=== PATIENT | female | born 1985 | race Caucasian/White ===

== ENCOUNTER → 2019-05-12 12:10 | Outpatient (CLI) | payer OTHER, SELFPAY ==
--- NOTE | 2019-05-12 | DI.US.S_ITS ---
PROCEDURE: US OB <= 14 WEEKS FETUS INDICATIONS: INITIAL SIZING AND DATING OUTSIDE/PRIOR DATING DATA: Last menstrual period (LMP): 529.. LMP-based estimated date of delivery (LEAH): 320. First dating scan (date and location): 05.12.19. Estimated date of delivery (LEAH) from first dating scan: 320. TECHNIQUE: Real-time scanning was performed of the fetus and maternal pelvic organs, with image documentation. Endovaginal scanning was also performed to better visualize the fetus and maternal ovaries. COMPARISON: None. FINDINGS: Embryo: An intrauterine gestational sac is present, containing a pole measuring 3.3 mm, corresponding to a 6 week 0 day gestation. heart rate is 115 beats per minute. Measurement variability in dating: +/- 4 weeks by LMP, +/- 7 days by mean sac diameter (use before 6 weeks gestation if crown-rump length not able to be measured), +/- 5 days by crown-rump length (up to 8 weeks 6 days gestation), +/- 7 days by crown-rump length (up to 13 weeks 6 days gestation). Maternal organs: Ovaries not seen. Limited images through the kidneys demonstrate no hydronephrosis. IMPRESSION: 1. Single living intrauterine gestation. Dictated by: Adriana Ferrari M.D. on 05/12/2019 at 16:45 Approved by: Adriana Ferrari M.D. on 05/12/2019 at 16:47
== END ==
PROVIDERS: PCP Nurse Practitioner Family; Visit Provider Student in an Organized Health Care Education/Training Program
DX: Z34.91 Encounter for supervision of normal pregnancy, unspecified, first trimester (principal); Z3A.01 Less than 8 weeks gestation of pregnancy
CPT/HCPCS: 76801

== ENCOUNTER → 2019-08-19 09:43 | Outpatient (CLI) | payer OTHER, SELFPAY ==
--- NOTE | 2019-08-19 | DI.US.S_ITS ---
PROCEDURE: US OB >= 14 WEEKS FETUS INDICATIONS: ANATOMY OUTSIDE/PRIOR DATING DATA: Last menstrual period (LMP): 03/25/19. LMP-based estimated date of delivery (LEAH): 12/30/19. First dating scan (date and location): 05/12/19. Estimated date of delivery (LEAH) from first dating scan: 01/05/20. TECHNIQUE: Real-time scanning was performed of the fetus, with image documentation and biometric measurements. Endovaginal scanning: Not performed. COMPARISON: None. FINDINGS: General: A single living intrauterine gestation is present. Presentation: Vertex. Placenta: Placental position is posterior fundal, without previa. Amniotic fluid index: 14.5 cm, normal range is 5-24 cm. heart rate: 139 beats per minute. Maternal cervical canal: 3.2 cm long. Normal lower limit is 2.5 cm. biometrics: Biparietal diameter: 4.8 cm, correlating with 20 weeks and 3 days Head circumference: 17.8 cm, correlating with 20 weeks and 3 days Abdominal circumference: 15.0 cm, correlating with 20 weeks and 2 days Femur length: 3.2 cm, correlate with 20 weeks and 1 day. Estimated gestational age from initial scan: 20 weeks and 1 day. Composite gestational age from present scan: 20 weeks and 3 days Estimated weight and percentile: 339 g, this correlates with the 49th percentile based on gestational age. Measurement variability for biometric dating: +/- 7 days from 14 weeks to 15 weeks 6 days gestation, +/- 10 days from 16 weeks to 21 weeks 6 days gestation, +/- 2 weeks from 22 weeks to 27 weeks 6 days gestation, +/- 3 weeks for 28 weeks gestation or later. weight reference: 4500 g or EFW >90/95% is considered macrosomia or large for gestational age. EFW <10% is small for gestational age. EFW 5% or less is considered intra-uterine growth restriction. Anatomic survey: Neuro: Ventricles are non-dilated at less than 10 mm. Cisterna magna is normal at 3-11 mm. Cerebellum is normal in size and morphology. Nuchal skin fold: Normal at less than 6 mm between 14-21 weeks gestational age. Face: Nose and lips, facial profile are normal. Spine: No evidence for spina bifida. Heart: 4-chambered heart is present, with normal ventricular outflow tracts. Diaphragm: Diaphragm is intact. Stomach: Left-sided stomach is present. Kidneys: No hydronephrosis. Normal is less than 5 mm in 2nd trimester, less than 7 mm in 3rd trimester. Cord: 3-vessel cord has orthotopic insertion. Bladder: Normal in size. Extremities: All 4 extremities identified. IMPRESSION: Single living intrauterine gestation with an estimated sonographic gestational age of approximately 20 weeks and 3 days. Expected interval growth has occurred. Normal anatomic screening survey. Dictated by: Abdulaziz Saenz M.D. on 08/19/2019 at 11:54 Approved by: Abdulaziz Saenz M.D. on 08/19/2019 at 11:59
== END ==
PROVIDERS: PCP Nurse Practitioner Family; Visit Provider Student in an Organized Health Care Education/Training Program
DX: Z36.89 Encounter for other specified antenatal screening (principal); Z3A.20 20 weeks gestation of pregnancy
CPT/HCPCS: 76811

== ENCOUNTER → 2019-12-09 14:56 | Outpatient (ROUT) | payer OTHER, SELFPAY | PROVIDERS: PCP Nurse Practitioner Family; Visit Provider Student in an Organized Health Care Education/Training Program | DX: Z34.90 Encounter for supervision of normal pregnancy, unspecified, unspecified trimester (principal) | CPT/HCPCS: 87081 ==

== ENCOUNTER 2019-12-31 16:08 | Inpatient (IN) | payer OTHER, SELFPAY ==
--- NOTE | 2019-12-31 18:32 | P.HP_ITS ---
History of Present Illness History of Present Illness Date Patient Seen: 12/31/19 Time Patient Seen: 18:32 Chief complaint: Narrative: Cece is a 34 year old at 40w2d with LEAH of 01/05/20 per first trimester ultrasound. She presents for an elective induction secondary to her 's deployment. Her course has been uncomplicated. LABS/IMAGING: ABO A positive, antibody negative on 05/05/19. Rubella immune. Hepatitis-B surface antigen negative. HIV, HSV 1 and 2 negative. GC/chlamydia negative. Treponemal antibody negative. Varicella titer positive. Pap smear plus HPV DNA negative on 05/05/19. Urine culture negative on 05/05/19. Hemoglobin/hematocrit 13.1/39.3 on 05/05/19. Repeat hemoglobin/hematocrit 12.7/38.6 on 12/18/19. TSH within normal limits. 1 hour Glucola 81 on 09/28/19. GBS negative on 12/09/19. NIPT negative on 06/05/19, male fetus. Dating US: 05/12/19, 6w0d, single live IUP, LEAH 01/05/20. Anatomy US: 08/19/19, 20w3d, normal. OBSTETRIC HISTORY: 02/12/2018, viable female via , 14 hours of labor, epidural, 7 lb 15 oz, Kanwal. 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 He is on a short leave for the . Review of Systems Review of Systems ROS: Yes All systems reviewed with the patient and are negative except as otherwise documented Exam Narrative Exam Narrative: General: NAD Skin: Color unremarkable, no rash nor lesions HEENT: Neck supple with midline trachea Lungs: CTAB Heart: Normal rate, and regular rhythm, S1, S2 normal, no murmur, click, rub or gallop Abdomen: Gravid, soft, non-tender Extremities: No cord, no edema, no cyanosis Pelvis: Normal female external genitalia Presentation: Vertex Cervix: 2.5/50/-3/posterior/soft Objective Labs Result Diagrams: 12/31/19 19:00
[2019-12-31 19:17] LABS: Add Manual Diff / Slide Review NO; Basophils Absolute Auto 100 /uL (0-100); Basophils Percent Auto 0.5 % (0-2); Eosinophils Absolute Auto 100 /uL (0-450); Eosinophils Percent Auto 0.8 % (2-4); Hematocrit 38.5 % (36-46); Hemoglobin 13.2 g/dL (12.0-16.0); Lymphocytes Absolute Auto 2300 /uL (1100-4500); Lymphocytes Percent Auto 21.1 % (25-40); Mean Corpuscular HGB Conc 34.2 % (30-36); Mean Corpuscular Hemoglobin 29.9 PG (26-34); Mean Corpuscular Volume 87.5 fL (80-100); Monocytes Absolute Auto 800 /uL (0-900); Monocytes Percent Auto 7.3 % (3-14); Neutrophils Absolute Auto 7700 /uL (1500-7000); Neutrophils Percent Auto 70.3 % (50-75); Platelet Count 147 X10^3/uL (150-400); Red Cell Distribution Width 14.4 % (11.6-14.8); White Blood Cell Count 10.9 X10^3/uL (4.5-11.0)
--- NOTE | 2019-12-31 19:21 | P.HPOB_ITS ---
OB HPI History of Present Condition Chief complaint: Narrative: Cece Guzman is a 34 year old at 40w2d with LEAH of 01/05/20 per first trimester ultrasound. She presents for an elective induction secondary to her 's deployment. Her course has been uncomplicated. LABS/IMAGING: ABO A positive, antibody negative on 05/05/19. Rubella immune. Hepatitis-B bautista face antigen negative. HIV, HSV 1 and 2 negative. GC/chlamydia negative. Treponemal antibody negative. Varicella titer positive. Pap smear plus HPV DNA negative on 05/05/19. Urine culture negative on 05/05/19. Hemoglobin/hematocrit 13.1/39.3 on 05/05/19. Repeat hemoglobin/hematocrit 12.7/38.6 on 12/18/19. TSH within normal limits. 1 hour Glucola 81 on 09/28/19. GBS negative on 12/09/19. NIPT negative on 06/05/19, male fetus. Dating US: 05/12/19, 6w0d, single live IUP, LEAH 01/05/20. Anatomy US: 08/19/19, 20w3d, normal. OBSTETRIC HISTORY: 02/12/2018, viable female via , 14 hours of labor, epidural, 7 lb 15 oz, Kanwal. 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 He is on a short leave for the . Evaluation Evaluation Laboratory results: Laboratory Tests 12/31/19 19:00 WBC 10.9 RBC 4.40 Hgb 13.2 Hct 38.5 MCV 87.5 MCH 29.9 MCHC 34.2 RDW 14.4 Plt Count 147 L Neut % (Auto) 70.3 Lymph % (Auto) 21.1 L [place] % (Auto) 7.3 Eos % (Auto) 0.8 L Baso % (Auto) 0.5 Neut # (Auto) 7700 H Lymph # (Auto) 2300 [place] # (Auto) 800 Eos # (Auto) 100 Baso # (Auto) 100 Review of Systems Review of Systems ROS: Yes All systems reviewed with the patient and are negative except as otherwise documented Exam Narrative Exam Narrative: General: NAD Skin: Color unremarkable, no rash nor lesions HEENT: Neck supple with midline trachea Lungs: CTAB Heart: Normal rate, and regular rhythm, S1, S2 normal, no murmur, click, rub or gallop Abdomen: Gravid, soft, non-tender Extremities: No cord, no edema, no cyanosis Pelvis: Normal female external genitalia Presentation: vertex Cervix: 2.5/50/3/posterior/soft Monitoring: Variability: Moderate Baseline: 120s Accelerations: Present Decelerations: Absent Contractions: Every 3-7 minutes Strength: Moderate Objective Labs Result Diagrams: 12/31/19 19:00 Labs: Laboratory Results - last 24 hr 12/31/19 19:00 WBC 10.9 RBC 4.40 Hgb 13.2 Hct 38.5 MCV 87.5 MCH 29.9 MCHC 34.2 RDW 14.4 Plt Count 147 L Neut % (Auto) 70.3 Lymph % (Auto) 21.1 L [place] % (Auto) 7.3 Eos % (Auto) 0.8 L Baso % (Auto) 0.5 Neut # (Auto) 7700 H Lymph # (Auto) 2300 [place] # (Auto) 800 Eos # (Auto) 100 Baso # (Auto) 100 Assessment and Plan Assessment and Plan Assessment and Plan narrative: 1. IUP at 39w3d 2. 3. Elective induction Plan: Admit to Labor and delivery for pitocin induction with routine orders. Anticipate vaginal delivery. Questions answered, appropriate consents will be signed.
[2019-12-31] MEDS: LACTATED RINGERS 1,000 ML 100 ML IV (19:33)
[2019-12-31] MEDS: OXYTOCIN PREMIX 30 UNIT/500 ML PLAST..BAG IV (19:46)
--- NOTE | 2019-12-31 19:46 | PM.OBPNLAB ---
Date/Time Date Patient Seen: 01/01/20 Time Patient Seen: 01:17 Pain Control Pain control: epidural Comments: Patient had episode of hypotension and nausea after epidural placed at 23:42, fluid bolus and ephedrine given x1 with good effect. Baby had two late decelerations at that time followed by minimal variability and pitocin was turned off. Baseline returned to moderate variability with good accelerations after 30 minutes. Mother's blood pressure is still low at 90s-100s/60s (baseline BP 110s/60s); pitocin remains off, second bolus infusing. Mother jorge on her own every 3 minutes. Mother reports pain well controlled with epidural, no current nausea. [place] in place. Pelvic Exam Dilation (cm): 4 Effacement (%): 50 station: -3 Amniotic membrane status: Intact Contractions Contractions on admission: irregular Monitor mode: External Pitocin rate (mU/min): 0 Contraction frequency (min): 3 Contraction duration (min): 1 Contraction pattern: Regular Contraction intensity: Moderate Status status: Category ll Heart Rate Baseline: 130 Monitor Accelerations: Present Monitor Decelerations: Late (3 minute late after maternal blood pressure drop 70s/40, maternal position changed, heart rate recovered back to baseline.) Monitor Variability: Moderate Assessment and Plan Assessment: induction ongoing Plan: continuous present management Comments: Mother just had a drop in her pressure into the 70-80s/40s. Maternal position changed and oxygen administered with good effect. Fluid bolus already running, on bag #3 now. Anesthesia is at bedside for pressor support. Will keep pitocin off while mother's blood pressure remains low. Baby's heart rate is now back to baseline in the 130s with moderate variability and good accelerations. When mother's blood pressure has fully recovered, will consider restarting pitocin. Mother is jorge on her own and may not need additional augmentation. Watching closely. .
[2019-12-31 19:51] VITALS: BP 104/60
[2019-12-31] MEDS: LACTATED RINGERS 1,000 ML 125 ML IV (23:58)
[2020-01-01] MEDS: LACTATED RINGERS 1,000 ML 125 ML IV ×4 (01:42→19:32)
--- NOTE | 2020-01-01 03:49 | PM.OBPNLAB ---
Date/Time Date Patient Seen: 01/01/20 Time Patient Seen: 03:49 Pain Control Pain control: epidural Pelvic Exam Dilation (cm): 4 Effacement (%): 50 station: -3 Amniotic membrane status: Intact Comments: cervix now mid position, head well applied Contractions Monitor mode: External Pitocin rate (mU/min): 0 Contraction frequency (min): 5 Contraction duration (min): 1 Contraction pattern: Regular Contraction intensity: Moderate Status status: Category ll Heart Rate Baseline: 125 Monitor Accelerations: Present Monitor Decelerations: Variable Monitor Variability: Moderate Assessment and Plan Assessment: induction ongoing Plan: continuous present management Comments: Maternal blood pressure has been stable(90-100s/50s) for over 2 hours now without the need for more pressors, third bolus infused, urine approaching a clear color. heart rate has shown a good recovery with stable baseline, good accelerations and no further lates; there are a few scattered variables. Contractions have started to space apart to every 5 minutes in the last hour. Will restart pitocin and recheck her cervix again in 2-4 hours. Anticipate vaginal delivery.
--- NOTE | 2020-01-01 07:08 | PM.OBPNLAB ---
Date/Time Date Patient Seen: 01/01/20 Time Patient Seen: 07:08 Pain Control Pain control: epidural Comments: Comfortable, sleeping a bit. Over the last 2 hours, Pitocin was titrated up to 7 units with contractions every 3 minutes. However, there was a rise in baseline into the 150-180s with a few short lates and variables, mother repositioned and bolus started, baseline remained elevated. Pitocin was then turned off and baseline is now falling to 130s. Maternal blood pressures remain low, but stable in the 90s/50s. Pelvic Exam Dilation (cm): 4 Effacement (%): 50 station: -3 Amniotic membrane status: Intact Contractions Monitor mode: External Pitocin rate (mU/min): 0 Contraction frequency (min): 5 Contraction pattern: Regular Contraction intensity: Moderate Status status: Category ll Heart Rate Baseline: 130 Monitor Accelerations: Present Monitor Decelerations: Variable Monitor Variability: Moderate Assessment and Plan Assessment: induction ongoing Plan: continuous present management Comments: Secondary to epidural-induced maternal hypotension, placental perfusion will be an ongoing issue during this induction. Baby is able to handle a certain amount of Pitocin but with increasing levels, shows some distress which is likely related to perfusion. Will continue to make sure that mother is well hydrated and change her position as needed to maintain her pressures and thus optimize baby's perfusion. Did discuss possibly stopping her epidural so that we can continue to titrate her Pitocin and put her into a good contraction pattern. Nitrous could be used for pain control in between contractions. She may continue to contract on her own, will watch her closely over the next 2 hours and check to see if she is making cervical change. Also discussed stopping the induction and having the patient come back in natural labor with a plan to use nitrous rather than an epidural. Patient demonstrated understanding and agreement with treatment plan. Questions answered.
--- NOTE | 2020-01-01 12:26 | PM.OBPNLAB ---
Date/Time Date Patient Seen: 01/01/20 Time Patient Seen: 12:26 Pain Control Pain control: epidural Comments: Doing well, pain controlled. Pitocin now back on at 7 units, baby tolerating well. Pelvic Exam Dilation (cm): 5 Effacement (%): 50 station: -3 Amniotic membrane status: Intact Contractions Monitor mode: External Pitocin rate (mU/min): 7 Contraction frequency (min): 3 Contraction duration (min): 1 Contraction pattern: Regular Contraction intensity: Moderate Status status: Category ll Heart Rate Baseline: 130 Monitor Accelerations: Present Monitor Decelerations: Variable Monitor Variability: Moderate Assessment and Plan Assessment: induction ongoing Plan: continuous present management Comments: Still in latent labor, baby is tolerating pitocin better. Will continue to titrate, anticiapte AROM at next cervical check.
--- NOTE | 2020-01-01 15:50 | PM.OBPNLAB ---
Date/Time Date Patient Seen: 01/01/20 Time Patient Seen: 15:50 Pain Control Pain control: epidural Comments: Doing well, has been using the peanut ball and changing position from side to side. Comfortable with epidural. Pelvic Exam Dilation (cm): 6 Effacement (%): 50 station: -3 Amniotic membrane status: Intact Comments: AROM, clear fluid Contractions Monitor mode: External Pitocin rate (mU/min): 7 Contraction frequency (min): 3 Contraction duration (min): 1 Contraction pattern: Regular Contraction intensity: Moderate Status status: Category ll Heart Rate Baseline: 130 Monitor Accelerations: Present Monitor Decelerations: Variable Monitor Variability: Moderate Assessment and Plan Assessment: induction ongoing Plan: continuous present management Comments: Hopeful that patient will move into active labor now that AROM has occurred. heart rate is much improved, maternal blood pressures still hypotensive but stable.
--- NOTE | 2020-01-01 18:06 | PM.OBPNLAB ---
Date/Time Date Patient Seen: 01/01/20 Time Patient Seen: 18:06 Pain Control Pain control: epidural Comments: Doing really well, comfortable with epidural. Pelvic Exam Dilation (cm): 7 Effacement (%): 90 station: -2 Amniotic membrane status: Ruptured Contractions Monitor mode: External Pitocin rate (mU/min): 7 Contraction frequency (min): 3 Contraction duration (min): 1 Contraction pattern: Regular Contraction intensity: Moderate Status status: Category ll Heart Rate Baseline: 130 Monitor Accelerations: Present Monitor Decelerations: Variable Monitor Variability: Moderate Assessment and Plan Assessment: active labor and induction ongoing Plan: continuous present management
--- NOTE | 2020-01-01 21:17 | P.PCNOB_ITS ---
Events: Labor Induction Labor & Delivery Delivery date: 01/01/20 Cervical ripening method: none Induction method: per pitocin protocol Delivery monitor: external FHT Route of delivery: Episiotomy description: None L&D Laceration Description: Perineal - 1st Degree Estimated blood loss (mL): 350 Anesthesia type: Epidural Complications: none Narrative: Cece Guzman is a 34-year-old female at 39w3d who presented for an elective induction of labor with Pitocin. Latent stage of labor was remarkable for maternal hypotension after placement of epidural that was treated with fluid boluses, maternal position changes, oxygen, and eventually pressor support. Baby did have some distress during this time and pitocin was stopped to allow for full recovery. Patient thus progressed slowly through her latent phase and entered active labor at approximately 16:00 after her membranes were artificially ruptured, clear fluid, 6/90/0-2. After that, mother progressed quickly to complete in about 4 hours, 19:50. After 3 pushes, she delivered a viable male infant in right occiput anterior position over an intact perineum via normal spontaneous vaginal delivery. No nuchal cord. The anterior shoulder delivered easily followed by the posterior shoulder. The remainder of the infant easily delivered. Infant was noted to have a spontaneous cry and spontaneous movement of all 4 extremities. Cord was clamped x2 and cut and noted to have 2 arteries and 1 vein. The infant was passed to the mother's abdomen and spontaneously nursed within the 1st hour. APGARS 9/9. The placenta delivered spontaneously and was noted to be intact. IV Pitocin was run throughout the 3rd stage of labor. Examination of the cervix and vaginal vault revealed a first-degree perineal laceration that did not require repair. Estimated blood loss 350 cc. The patient tolerated this procedure well and recovered in L&D with her . All sponge and needle counts were correct x2. Plan for aftercare: Routine care.
[2020-01-01] MEDS: IBUPROFEN 600 MG TABLET PO (23:55)
[2020-01-01] MEDS: LANOLIN OINT 7 GM 1 APPLIC TOP (23:58)
[2020-01-01] MEDS: DERMOPLAST SPRAY 20% 60 ML 1 SPRAY TOP (23:58)
[2020-01-02] MEDS: IBUPROFEN 600 MG TABLET PO ×2 (05:44→13:23)
[2020-01-02 07:33] LABS: Add Manual Diff / Slide Review NO; Basophils Absolute Auto 0 /uL (0-100); Basophils Percent Auto 0.3 % (0-2); Eosinophils Absolute Auto 100 /uL (0-450); Hematocrit 34.7 % (36-46); Hemoglobin 11.6 g/dL (12.0-16.0); Lymphocytes Absolute Auto 2200 /uL (1100-4500); Lymphocytes Percent Auto 18.2 % (25-40); Mean Corpuscular HGB Conc 33.4 % (30-36); Mean Corpuscular Hemoglobin 29.6 PG (26-34); Mean Corpuscular Volume 88.4 fL (80-100); Monocytes Absolute Auto 900 /uL (0-900); Monocytes Percent Auto 7.5 % (3-14); Neutrophils Absolute Auto 9000 /uL (1500-7000); Platelet Count 125 X10^3/uL (150-400); Red Blood Cell Count 3.93 X10^6/uL (4.0-5.2); Red Cell Distribution Width 14.7 % (11.6-14.8); White Blood Cell Count 12.3 X10^3/uL (4.5-11.0)
--- NOTE | 2020-01-02 09:34 | PM.OBDS.1 ---
Discharge Providers Provider Date of admission: 12/31/19 16:08 Discharge Date: 01/02/20 Primary care physician: JOANN Young Consults: 01/02/20 21:43 Consult to [facility] Coverer Routine Comment: Discharge provider: Sandra English MD Summary Hospital Course Date Patient Seen: 01/02/20 Time Patient Seen: 09:35 Procedures: Normal spontaneous delivery and Pitocin augmentation. Hospital Course: The patient is a 34-year-old G2, P1001 female at 39 weeks and 2 days estimated gestational age who presented for elective induction. On vaginal examination, the patient was found to be 2.5 cm dilated, 50% effaced and ?3 station, and the heart tracing at that time was in the 120s with good accelerations and no decelerations. She was admitted to Labor and Delivery for Pitocin augmentation. Her labor was complicated by hypotension status post epidural that persisted throughout her labor and required pressor support. After amniotomy, she progressed quickly to complete and delivered a viable 8-pound, 4.7-ounce male infant with Apgars of 9 and 9 at one and five minutes. She had a first-degree perineal laceration that did not require repair. There were no nuchal cords, no true knots and the number of vessels in the cord were three. Her course was uncomplicated, and the patient was discharged to home in stable and satisfactory condition. Time spent on Discharge and Coordination of post-hospital care: 35 minutes Peripartum Data Infant Delivery Method: Natural Vaginal Laceration description: Perineal - 1st Degree complications: none Status at Discharge Cognitive/behavioral status at discharge: at baseline, oriented Functional status at discharge: independent ambulation Overall status at discharge: patient is progressing back to baseline Time Spent with Patient Time attestation: Total time spent providing and/or coordinating discharge services: Objective Labs Result Diagrams: 01/02/20 07:15 Labs: Laboratory Results - last 24 hr 01/02/20 07:15 WBC 12.3 H RBC 3.93 L Hgb 11.6 L Hct 34.7 L MCV 88.4 MCH 29.6 MCHC 33.4 RDW 14.7 Plt Count 125 L Neut % (Auto) 73.0 Lymph % (Auto) 18.2 L [place] % (Auto) 7.5 Eos % (Auto) 1.0 L Baso % (Auto) 0.3 Neut # (Auto) 9000 H Lymph # (Auto) 2200 [place] # (Auto) 900 Eos # (Auto) 100 Baso # (Auto) 0 Exam Narrative Exam Narrative: General: NAD Skin: Color unremarkable, no rash nor lesions Lungs: CTAB Heart: Normal rate, and regular rhythm, S1, S2 normal, no murmur, click, rub or gallop Abdomen: FF at U-1, soft, non-tender, +BS Extremities: No edema, no cyanosis Discharge Plan Discharge Plan Patient Disposition: Home Discharge orders & Medications Prescriptions: New docusate sodium [DOK] 100 mg Capsule 100 mg PO BID PRN (Reason: Constipation) Qty: 15 RF: 1 ibuprofen 600 mg Tablet 600 mg PO Q6HR PRN (Reason: Pain, Mild (1-3)) Qty: 90 RF: 1 Prenatabs Rx 29 mg iron- 1 mg Tablet 1 tab PO DAILY Qty: 90 RF: 3 Follow up/Referrals: Sandra English MD [Physician] - Irma Benson ARNP [Primary Care Provider] - Diet/Activity/Treatments Diet: Diet as Tolerated Activity: as tolerated, pelvic rest x 6 weeks Skin/Wound/Dressing Care Report to your healthcare provider any signs of infection, such as:: chills, fever, increased pain and unusual drainage Discharge Data Primary Care Provider: Irma Benson
[2020-01-02] MEDS: PRENATAL VIT,CALC/IRON/FOLIC 1 TABLET 1 TAB PO (09:36)
[2020-01-02 12:32] VITALS: BP 102/59; PULSE 75; RESP 16; TEMP 37.1
[2020-01-02] MEDS: DOCUSATE 100 MG CAPSULE PO (13:23)
== END 2020-01-02 16:15 | disposition home or self-care (01) | DRG 807 ==
PROVIDERS: Admitting Provider Student in an Organized Health Care Education/Training Program; PCP Nurse Practitioner Family; Referring Provider Student in an Organized Health Care Education/Training Program; Visit Provider Student in an Organized Health Care Education/Training Program
DX: O70.0 First degree perineal laceration during delivery (principal); Z37.0 Single live birth; Z3A.39 39 weeks gestation of pregnancy
CPT/HCPCS: 01967; 36415; 59050; 85025; 86850; 86900; 86901; G0379; J2590

== ENCOUNTER 2022-01-09 10:30 | Outpatient (RCR) | payer OTHER, SELFPAY ==
--- NOTE | 2021-12-05 14:59 | PT.OIE ---
Current Diagnoses Pain in right hip (12/05/21) Visit Care Team Role Provider Type Sandra English MD Attending Provider Physician Primary Care Provider Referring Provider Specialty: Family [facility] Address: [address] [place] [address], [facility], [place], [place], [facility] Email: [email or web address] Physical Therapy Initial Evaluation PT-OP-A Visit Information Start: 12/05/21 10:20 Freq: Status: Active Protocol: Document 12/05/21 09:45 DCW (Rec: 12/05/21 10:24 DCW [id number]) Out-Patient Physical Therapy Visit Information Visit Information Visit Type Initial Evaluation Visit Start Time 09:45 Visit Stop Time 10:15 Total Visit Minutes 30 Visit Number 1 Number of MEAT BLENDER Visits 0 Evaluation Information Evaluation Date 12/05/21 PT-OP-B Current Condition Start: 12/05/21 10:20 Freq: Status: Active Protocol: Document 12/05/21 09:45 DCW (Rec: 12/05/21 10:24 DCW [id number]) Current Condition History of Current Condition Onset Date Multi-year history Current Complaints Occasional hip pain, possible LLD History of Current Condition Pt is a 35 year old female presenting with a history of fairly regular hip strains. 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 Pt notes that she typically experiences hip and knee pain when she runs. Since having kids, she feels her hip strains have become more frequents, potentially due to carrying her kids. Pt notes she has begun taking some strengthening and flexibility classes, which may be helping. Pt's main goal for therapy is to learn some tools to help prevent further hip strain. PT-OP-C Subjective Start: 12/05/21 10:20 Freq: Status: Active Protocol: Document 12/05/21 09:45 DCW (Rec: 12/05/21 10:27 DCW [id number]) OP-PT Subjective Patient Comments Patient Comments I got a lift off of [employer] to help some with my leg length difference, I'm not sure yet how much it is helping. Patient Questionnaires Lower Extremity Functional Scale LEFS Score 80/80 = 100% LEFS Impairment 0% Impaired (Score 80) OP-PT Pain Assessment Pain Assessment Grid Paper Pain Assessment Grid Completed Yes Location Right Lateral Hip Intensity 1 Scale Used Numeric (0 - 10) Frequency Occasional PT-OP-F Manual Assessment Start: 12/05/21 10:20 Freq: Status: Active Protocol: Document 12/05/21 09:45 DCW (Rec: 12/05/21 11:09 DCW [id number]) Manual Assessments Joint Mobility Assessment Joint Mobility Assessment Pelvic rotation, elevated right ASIS Other Manual Assessments Other Manual Assessments Leg length measurements, ASIS to medial malleoli: Right: 89.5 cm Left: 89.0 cm PT-OP-K Range of Motion Start: 12/05/21 10:20 Freq: Status: Active Protocol: Document 12/05/21 09:45 DCW (Rec: 12/05/21 11:09 DCW [id number]) Hip Goniometric Range of Motion Hip Bilateral Hip ROM WFL Yes Testing Position Supine PT-OP-L Special Tests Start: 12/05/21 10:20 Freq: Status: Active Protocol: Document 12/05/21 09:45 DCW (Rec: 12/05/21 11:11 DCW [id number]) Special Tests Hip Special Tests Straight Leg Raise Test Results Negative SHARON Test Results Negative Hip IR:ER Ratios Test Results WNL PT-OP-M Strength Start: 12/05/21 10:20 Freq: Status: Active Protocol: Document 12/05/21 09:45 DCW (Rec: 12/05/21 11:12 DCW [id number]) Hip Strength Hip Manual Muscle Testing Right Flexion (L2) 4+ Good+ Abduction 4 Good Adduction 4+ Good+ External Rotation 4+ Good+ Internal Rotation 4+ Good+ Left Flexion (L2) 4+ Good+ Abduction 4 Good Adduction 4+ Good+ External Rotation 4+ Good+ Internal Rotation 4+ Good+ Knee Strength Knee Manual Muscle Testing Right Flexion (S2) 5 Normal Extension (L3) 5 Normal Left Flexion (S2) 5 Normal Extension (L3) 5 Normal Ankle/Foot Strength Ankle and Foot Manual Muscle Testing Right Dorsiflexion (L4) 5 Normal Plantarflexion (S1) 5 Normal Left Dorsiflexion (L4) 5 Normal Plantarflexion (S1) 5 Normal PT-OP-Q Treatments Start: 12/05/21 10:20 Freq: Status: Active Protocol: Document 12/05/21 09:45 DCW (Rec: 12/05/21 10:25 DCW [id number]) Therapeutic Exercises Supine Exercises 1 Supine Exercise Name MWM - Resisted R hip flexion/L hip extension to align pelvis Sidelying Exercises 2 Sidelying Exercise Name Reverse Clamshell Side right 1 Sidelying Exercise Name Clamshell Side bilateral PT-OP-T Assessment and Plan Start: 12/05/21 10:20 Freq: Status: Active Protocol: Document 12/05/21 09:45 DCW (Rec: 12/05/21 14:59 DC [id number]) Physical Therapy Assessment Evaluation Complexity Number of Personal Factors/Comorbidities 0 Number of Body Systems Impaired 1-2 Clinical Presentation at Evaluation Stable Impairments Impairments Activity Tolerance,Pain, Strength Goals Two Impairment Pt presents with elevated right ASIS due to pelvic rotation Senior Sales Executive Goal (LTG) Pt to demonstrate ability to use MWM to self-correct rotated pelvis LTG Duration 01/02/22 One Impairment Pt does not have an appropriate home exercise program Short Term Goal (STG) Pt to be independent and compliant with an appropriate HEP STG Duration 12/19/21 Assessment Summary Assessment Pt presents with minimal complaints at the moment. Pt experiences occasional right hip pain, feels like she strains it due to holding her children or trying to run/jog. Pt not experiencing any problems at the moment. Does present today with mild pelvic rotation, however responded very well to MWM. Additionally , shows some very mild weakness in her hip. Pt may benefit from 1-2 more visits for HEP training and some STM, as long as there is no flare- up. Physical Therapy Plan Frequency and Duration Frequency of Treatment 1x/Week Duration of Treatment One month Plan of Care Start Date 12/05/21 Plan of Care End Date 01/02/22 Therapeutic Interventions Therapeutic Interventions Home Exercise Program,Joint Mobilizations,Patient/ Caregiver Education,Self-Care/ Home Management,Soft Tissue Mobilization,Therapeutic Activities,Therapeutic Exercises Next Visit Focus/Plan Next Note Type Treatment Note Next Visit Plan MWM, STM, Hip strengthening
--- NOTE | 2021-12-05 15:00 | PT.OPPOC ---
Physical, Occupational & Speech Therapy At [facility] Current Diagnoses Pain in right hip (12/05/21) Visit Care Team Role Provider Type Sandra English MD Attending Provider Physician Primary Care Provider Referring Provider Specialty: Family Practice Address: [address] [place] [address] [place], [address] Email: [email or web address] Plan Of Care PT-OP-T Assessment and Plan Start: 12/05/21 10:20 Freq: Status: Active Protocol: Document 12/05/21 09:45 DCW (Rec: 12/05/21 14:59 DCW [id number]) Physical Therapy Assessment Evaluation Complexity Number of Personal Factors/Comorbidities 0 Number of Body Systems Impaired 1-2 Clinical Presentation at Evaluation Stable Impairments Impairments Activity Tolerance,Pain, Strength Goals Two Impairment Pt presents with elevated right ASIS due to pelvic rotation Intermediate Goal (LTG) Pt to demonstrate ability to use MWM to self-correct rotated pelvis LTG Duration 01/02/22 One Impairment Pt does not have an appropriate home exercise program Short Term Goal (STG) Pt to be independent and compliant with an appropriate HEP STG Duration 12/19/21 Assessment Summary Assessment Pt presents with minimal complaints at the moment. Pt experiences occasional right hip pain, feels like she strains it due to holding her children or trying to run/jog. Pt not experiencing any problems at the moment. Does present today with mild pelvic rotation, however responded very well to MWM. Additionally , shows some very mild weakness in her hip. Pt may benefit from 1-2 more visits for HEP training and some STM, as long as there is no flare- up. Physical Therapy Plan Frequency and Duration Frequency of Treatment 1x/Week Duration of Treatment One month Plan of Care Start Date 12/05/21 Plan of Care End Date 01/02/22 Therapeutic Interventions Therapeutic Interventions Home Exercise Program,Joint Mobilizations,Patient/ Caregiver Education,Self-Care/ Home Management,Soft Tissue Mobilization,Therapeutic Activities,Therapeutic Exercises Next Visit Focus/Plan Next Note Type Treatment Note Next Visit Plan MWM, STM, Hip strengthening Plan of Care Dates Plan of Care Start Date 12/05/21 Plan of Care End Date 01/02/22 Electronically Signed by: Evelio Jimenez, PT 12/05/21 1500 Please Sign and Return: I have reviewed this Plan of Care and certify that the skilled therapy services above are required to meet the patient?s needs. Physician Signature Date Printed Name and Credentials Clinical Instructor Signature Printed Name and Credentials
--- NOTE | 2022-01-09 10:54 | PT.OTN ---
Current Diagnoses Pain in right hip (01/09/22) Physical Therapy Treatment Note PT-OP-A Visit Information Start: 12/05/21 10:20 Freq: Status: Active Protocol: Document 01/09/22 10:30 DCW (Rec: 01/09/22 10:53 DCW [id number]) Out-Patient Physical Therapy Visit Information Visit Information Visit Type Discharge Summary Visit Start Time 10:30 Visit Stop Time 10:47 Total Visit Minutes 17 Visit Number 2 Number of BUSINESS MANAGEMENT ANALYST Visits 0 Evaluation Information Evaluation Date 12/05/21 PT-OP-B Current Condition Start: 12/05/21 10:20 Freq: Status: Active Protocol: Document 12/05/21 09:45 DCW (Rec: 12/05/21 10:24 DCW [id number]) Current Condition History of Current Condition Onset Date Multi-year history Current Complaints Occasional hip pain, possible LLD History of Current Condition Pt is a 35 year old female presenting with a history of fairly regular hip strains. 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 Pt notes that she typically experiences hip and knee pain when she runs. Since having kids, she feels her hip strains have become more frequents, potentially due to carrying her kids. Pt notes she has begun taking some strengthening and flexibility classes, which may be helping. Pt's main goal for therapy is to learn some tools to help prevent further hip strain. PT-OP-C Subjective Start: 12/05/21 10:20 Freq: Status: Active Protocol: Document 01/09/22 10:30 DCW (Rec: 01/09/22 10:53 DCW [id number]) OP-PT Subjective Patient Comments Patient Comments A week or so ago, it got a little sore, felt like it might have been out again, but I did the exercise, and it didn't really ever hurt, so I may have fixed it. PT-OP-F Manual Assessment Start: 12/05/21 10:20 Freq: Status: Active Protocol: Document 01/09/22 10:30 DCW (Rec: 01/09/22 10:53 DCW [id number]) Manual Assessments Soft Tissue Assessment Soft Tissue Mobility Assessment Increased tenderness/tone bilateral psoas PT-OP-K Range of Motion Start: 12/05/21 10:20 Freq: Status: Active Protocol: Document 12/05/21 09:45 DCW (Rec: 12/05/21 11:09 DCW [id number]) Hip Goniometric Range of Motion Hip Bilateral Hip ROM WFL Yes Testing Position Supine PT-OP-L Special Tests Start: 12/05/21 10:20 Freq: Status: Active Protocol: Document 12/05/21 09:45 DCW (Rec: 12/05/21 11:11 DCW [id number]) Special Tests Hip Special Tests Straight Leg Raise Test Results Negative SHARON Test Results Negative Hip IR:ER Ratios Test Results WNL PT-OP-M Strength Start: 12/05/21 10:20 Freq: Status: Active Protocol: Document 12/05/21 09:45 DCW (Rec: 12/05/21 11:12 DCW [id number]) Hip Strength Hip Manual Muscle Testing Right Flexion (L2) 4+ Good+ Abduction 4 Good Adduction 4+ Good+ External Rotation 4+ Good+ Internal Rotation 4+ Good+ Left Flexion (L2) 4+ Good+ Abduction 4 Good Adduction 4+ Good+ External Rotation 4+ Good+ Internal Rotation 4+ Good+ Knee Strength Knee Manual Muscle Testing Right Flexion (S2) 5 Normal Extension (L3) 5 Normal Left Flexion (S2) 5 Normal Extension (L3) 5 Normal Ankle/Foot Strength Ankle and Foot Manual Muscle Testing Right Dorsiflexion (L4) 5 Normal Plantarflexion (S1) 5 Normal Left Dorsiflexion (L4) 5 Normal Plantarflexion (S1) 5 Normal PT-OP-Q Treatments Start: 12/05/21 10:20 Freq: Status: Active Protocol: Document 01/09/22 10:30 DCW (Rec: 01/09/22 10:53 DCW [id number]) Therapeutic Exercises Standing Exercises 3 Standing Exercise Name Hip Abduction Side bilateral Resistance Red 2 Standing Exercise Name Hip Extension Side bilateral Resistance Red 1 Standing Exercise Name Resisted side-stepping Resistance Red PT-OP-T Assessment and Plan Start: 12/05/21 10:20 Freq: Status: Active Protocol: Document 01/09/22 10:30 DCW (Rec: 01/09/22 10:53 DCW [id number]) Physical Therapy Assessment Impairments Impairments Activity Tolerance,Pain, Strength Goals Two Impairment Pt presents with elevated right ASIS due to pelvic rotation Plastics Fabricator Or Welder Goal (LTG) Pt to demonstrate ability to use MWM to self-correct rotated pelvis LTG Duration Met One Impairment Pt does not have an appropriate home exercise program Short Term Goal (STG) Pt to be independent and compliant with an appropriate HEP STG Duration Met Progress Towards Goals Progress Towards Goals Goals Met Assessment Summary Assessment Pt has met all goals, and has joined exercise classes to build hip strength. Pt currently asymptomatic, and the one time she did feel like her pelvis was rotating out of place, she was able to self -correct. Pt appropriate to discharge at this time, will require a new referral in order to return to skilled therapy if needed. Physical Therapy Plan Frequency and Duration Frequency of Treatment 1x/Week Duration of Treatment One day Plan of Care Start Date 01/09/22 Plan of Care End Date 01/10/22 Therapeutic Interventions Therapeutic Interventions Home Exercise Program,Joint Mobilizations,Patient/ Caregiver Education,Self-Care/ Home Management,Soft Tissue Mobilization,Therapeutic Activities,Therapeutic Exercises Discharge Physical Therapy Discharge Reasons Goals Met Next Visit Focus/Plan Next Note Type Discharge Summary
--- NOTE | 2022-01-09 10:54 | PT.OPPOC ---
Physical, Occupational & Speech Therapy At [facility] Current Diagnoses Pain in right hip (01/09/22) Visit Care Team Role Provider Type Sandra English MD Attending Provider Physician Primary Care Provider Referring Provider Specialty: Family Practice Address: [address] [place] [address] [place], [address] Email: [email or web address] Plan Of Care PT-OP-T Assessment and Plan Start: 12/05/21 10:20 Freq: Status: Active Protocol: Document 01/09/22 10:30 DCW (Rec: 01/09/22 10:53 DCW [id number]) Physical Therapy Assessment Impairments Impairments Activity Tolerance,Pain, Strength Goals Two Impairment Pt presents with elevated right ASIS due to pelvic rotation Information Services Assistant Goal (LTG) Pt to demonstrate ability to use MWM to self-correct rotated pelvis LTG Duration Met One Impairment Pt does not have an appropriate home exercise program Short Term Goal (STG) Pt to be independent and compliant with an appropriate HEP STG Duration Met Progress Towards Goals Progress Towards Goals Goals Met Assessment Summary Assessment Pt has met all goals, and has joined exercise classes to build hip strength. Pt currently asymptomatic, and the one time she did feel like her pelvis was rotating out of place, she was able to self -correct. Pt appropriate to discharge at this time, will require a new referral in order to return to skilled therapy if needed. Physical Therapy Plan Frequency and Duration Frequency of Treatment 1x/Week Duration of Treatment One day Plan of Care Start Date 01/09/22 Plan of Care End Date 01/10/22 Therapeutic Interventions Therapeutic Interventions Home Exercise Program,Joint Mobilizations,Patient/ Caregiver Education,Self-Care/ Home Management,Soft Tissue Mobilization,Therapeutic Activities,Therapeutic Exercises Discharge Physical Therapy Discharge Reasons Goals Met Next Visit Focus/Plan Next Note Type Discharge Summary Plan of Care Dates Plan of Care Start Date 01/09/22 Plan of Care End Date 01/10/22 Electronically Signed by: Evelio Jimenez, PT 01/09/22 2995 Please Sign and Return: I have reviewed this Plan of Care and certify that the skilled therapy services above are required to meet the patient?s needs. Physician Signature Date Printed Name and Credentials Clinical Instructor Signature Printed Name and Credentials
== END 2022-01-15 12:55 ==
LOC: PHYS 10:30
PROVIDERS: PCP Student in an Organized Health Care Education/Training Program; Referring Provider Student in an Organized Health Care Education/Training Program; Visit Provider Student in an Organized Health Care Education/Training Program
DX: M25.551 Pain in right hip (principal)
CPT/HCPCS: 97110; 97161

== ENCOUNTER → 2024-09-22 16:40 | Outpatient (CLI) | payer OTHER, SELFPAY ==
--- NOTE | 2024-09-22 16:42 | DI.RAD.S_ITS ---
PROCEDURE: XR HIP W PEL IF DONE LUCIA MIN 4V INDICATIONS: HIP PAIN TECHNIQUE: AP pelvis with lateral view(s) of the bilateral hip(s). COMPARISON: None. FINDINGS: Bones: No fractures or dislocations. No evidence of avascular necrosis of femoral head. Pelvic ring appears intact. No suspicious bony lesions. Soft tissues: The visualized bowel gas pattern is normal. No suspicious soft tissue calcifications. Intrauterine device is noted in place. IMPRESSION: 1. No pelvic or hip fracture. No hip dislocation. Joint spaces are well preserved. No evidence of avascular necrosis. 2. No gross pelvic soft tissue abnormalities. Dictated by: Tom Griffiths M.D. on 09/23/2024 at 12:04 Approved by: Tom Griffiths M.D. on 09/23/2024 at 12:05
== END ==
LOC: RAD 16:41
PROVIDERS: PCP Internal Medicine; Referring Provider Internal Medicine; Visit Provider Internal Medicine
DX: M25.551 Pain in right hip (principal); M25.552 Pain in left hip
CPT/HCPCS: 73522

== ENCOUNTER → 2024-12-23 08:31 | Outpatient (CLI) | payer OTHER, SELFPAY ==
--- NOTE | 2024-12-23 08:32 | DI.US.S_ITS ---
PROCEDURE: US PELVIC COMPLETE INDICATIONS: MENSTRUAL CHANGES,IUD CHECK UP TECHNIQUE: Real-time scanning was performed of the pelvic organs, with image documentation. Additional endovaginal scanning was necessary due to incomplete visualization of the adnexal and endometrial structures by transabdominal scanning. COMPARISON: None. FINDINGS: Uterus: Uterus is anteverted and normal in size at 8.0 x 5.9 x 5.4 cm. The myometrium is bulky, and heterogenous with multiple shadowing foci. The endometrium measures 7.9 mm combined thickness. IUD noted skewed in the endometrial canal with left arm in the endocervical canal or lower uterine segment and right arm in the mid lower uterine segment Ovaries: The right ovary measures 2.8 x 1.7 x 1.6 cm, with a calculated ovarian volume of 3.9 cc. The left ovary measures 3.0 x 2.5 x 2.0 cm, with a calculated ovarian volume of 7.7 cc. The ovaries have a normal sonographic appearance. Prominent right adnexal veins measures up to 8.3 mm with Valsalva. Complex hemorrhagic left ovarian cyst 2.5 cm. No adnexal masses are seen. Other: No pathologic free abdominal or pelvic fluid. IMPRESSION: Bulky heterogenous myometrium may reflect adenomyosis. Consider follow-up MRI Intrauterine device appears malpositioned with right and left arms in the lower uterine segment Approved by: Abdirashid Hodges M.D. on 12/23/2024 at 12:28
== END ==
PROVIDERS: PCP Registered Nurse; Referring Provider Registered Nurse; Visit Provider Registered Nurse
DX: Z30.431 Encounter for routine checking of intrauterine contraceptive device (principal); N92.6 Irregular menstruation, unspecified
CPT/HCPCS: 76830; 76856

== ENCOUNTER 2025-09-27 17:15 | Day surgery (SDC) | payer OTHER, SELFPAY ==
[2025-09-06 15:13] VITALS: BMI 21.7
[2025-09-27] VITALS (17 sets, daily range): BP systolic 79–104; BP diastolic 42–72; PULSE 54–100; RESP 12–22; TEMP 36.3–36.8; O2SAT 94–100
--- NOTE | 2025-09-27 | PATH_ITS ---
[facility] Accession Number: [id number] No. of containers..01 Tissue . 01 Material submitted: . uterus - UTERUS, CERVIX, BILATERAL FALLOPIAN TUBES . 01 Diagnosis: UTERUS, CERVIX, BILATERAL FALLOPIAN TUBES; HYSTERECTOMY AND BILATERAL SALPINGECTOMY: Uterine weight: 141 grams. Uterine cervix: Mild chronic cervicitis; negative for dysplasia or malignancy. Endometrium: Weakly proliferative and inactive-appearing endometrium with focal changes compatible with exogenous hormonal/progestin effect. Negative for atypia, hyperplasia, or malignancy. Benign intramural leiomyoma, 0.5 cm in diameter. Negative for adenomyosis, on payable representative sections. Negative for atypia or malignancy. Benign bilateral fallopian tubes and paratubal cyst. . [facility] 10/04/2025 1527 Local . 01 Electronically signed: . Michelle Sevilla MD, Pathologist NPI- [id number] . 01 Gross description: . Received in formalin with two patient identifiers and uterus, cervix, bilateral fallopian tubes, is a uterus with attached cervix and attached bilateral fallopian tubes. The uterus and cervix are 141 grams, 9.5 cm cervix to fundus by 6.5 cm cornu to cornu by 5.2 cm anterior to posterior. . The cervix is 2.5 cm long by 3.0 cm diameter with najera, smooth ectocervical mucosa, and multiple mucoid-filled endocervical cysts up to 0.9 cm. The serosa is pink-najera, smooth and congested. The endometrium is red-najera, smooth and attenuated, 0.1 cm thick. The myometrium is pink-najera, mildly trabeculated, and up to 2.6 cm thick. There is one 0.5 cm white, whorled intramural nodule with no gross evidence of hemorrhage or necrosis. . The right fallopian tube is 6.2 cm long by 0.5 cm diameter. The left fallopian tube is 5.8 cm long by 0.5 cm diameter with a 1 cm paratubal cyst. The cut surfaces are najera with pinpoint lumen. . Leadite Worker sections are submitted as follows: A1: Anterior and posterior cervix. A2: Anterior endomyometrium to include myometrial nodule. A3: Posterior endomyometrium. A4: Right fallopian tube with entire bisected fimbriae. A5: Left fallopian tube with entire bisected fimbriae. ([id number]) /DAVID 09/28/2025 1036 Local . 01 Pathologist provided ICD-10: N80.03, N93.9, D25.9 . 01 CPT . 384326 Specimen Comment: A courtesy copy of this report has been sent to [facility] Pathology Performed at: [address] [address], [place], [place] [id number] MD John Lawrence MD Phone: [phone]
[2025-09-27] MEDS: LACTATED RINGERS 1,000 ML 42 ML IV ×2 (12:38→14:31)
[2025-09-27] MEDS: ACETAMINOPHEN IV 1,000 MG/100 ML VIAL 400 MG IV (12:45)
[2025-09-27] MEDS: SCOPOLAMINE 1 PATCH TOP (12:46)
--- NOTE | 2025-09-27 12:49 | PM.PREOP ---
Pre-operative Note Interval Note History & Physical reviewed/Exam performed by Physician: Yes Changes to H&P: No H&P completed within 30 days and has changed as indicated here:: see H&P from 09/13/25
--- NOTE | 2025-09-27 13:05 | SUR.OPER ---
Lithotomy on padded OR bed. [place] Pad Positioner under torso. Head on pillow, arms padded and tucked at sides. Legs secured in padded yellow fins stirrups. final positioning done by provider
--- NOTE | 2025-09-27 15:24 | P.OP_ITS ---
Operative Date/Time/Diagnoses Date of procedure: 09/27/25 Time of procedure: 13:30 Pre-op diagnosis: Abnormal uterine bleeding Post-op diagnosis: same Procedure & Clinicians Procedure: Robotic-assisted total laparoscopic hysterectomy Bilateral salpingectomy Same procedure(s) as scheduled: Yes Indications: 39yo F with abnormal uterine bleeding refractory to medical management, desiring definitive management with the above procedures. Surgeon: Tana Jiang Assisted?: No Anesthesia Type: General Operative Notes Findings: Enlarged 8wk sized uterus, normal appearing uterus, cervix, bilateral ovaries and bilateral fallopian tubes. Normal appearing appendix. Specimen(s): other (uterus, cervix, bilateral fallopian tubes) Applied: catheter (discontinued at the end of the case) Estimated Blood Loss (mL): 50 Blood products transfused: none Procedure in detail: The risks, benefits, indications and alternatives of the procedure were reviewed with the patient and informed consent was obtained. The patient was taken to the operating room where general anesthesia was obtained without difficulty. She was then placed in the low lithotomy position using Frank Stirrups and arms were tucked with padding. SCDs were placed bilaterally for VTE prophylaxis. She was then prepped and draped in the sterile fashion. She received 2g Ancef for surgical prophylaxis. A hinkle catheter was then placed, and a sterile speculum was placed in the ulises ent's vagina and the cervix was visualized. A [employer]-care uterine manipulator was then placed. Attention was then turned to the patient?s abdomen where an 8mm skin incision was made in the superior aspect of the umbilicus after injection of 0.25% marcaine. An 8mm trocar and sleeve were then carefully introduced into the peritoneal cavity under direct visualization at a 90-degree angle while tenting up the abdominal wall. Intra-peritoneal placement was confirmed under direct visualization with the laparoscope with entry pressure <5 mm Hg. A pneumoperitoneum was obtained with several liters of CO2 gas, maximum pressure of 15 mmHg. Upon entry into the peritoneal cavity, structures immediately below the incision were inspected and found to be free of injury. Survey of abdomen and pelvis notable for above findings. Three additional ports were placed under visualization after injection of 0.25% marcaine, one on the left side of the abdomen and two on the right in a linear fashion with the umbilical incision. No intra-abdominal adhesions were noted. The [employer] robot was then docked, with the vessel sealer and monopolar curly available as energy sources. Stabilizing the uterus, the vessel sealer and monopolar scissors were used to transect the left fallopian tube a serial fashion from the ovary along the mesosalpinx. The left round ligament was then clamped, cauterized, and ligated. The left utero-ovarian ligament was then clamped, cauterized, and ligated. The anterior broad ligament was then incised to create a bladder flap. Attention was then turned to the right side of the uterus. In a similar manner, the right fallopian tube was transected from the mesosalpinx and the right round ligament and utero-ovarian ligament were clamped, cauterized, then ligated. The anterior broad ligament was incised along the bladder reflection, connected with the prior incision created from the left side. This was bluntly and sharply dissected off the lower uterine segment and cervix until endopelvic fascia was visualized. The uterine vessels bilaterally were then identified, skeletonized, cauterized, and then ligated. The colpotomy was then made circumferentially using the monopolar scissors. The entire cervix and uterus were then successfully amputated from the vagina. The uterus, cervix, and bilateral fallopian tubes were then removed through the vagina. The vagina was occluded with a glove to maintain pneumoperitoneum. The vaginal cuff was then closed with 0-Stratafix barbed suture in a running fashion. The pelvis was suctioned and found to to be hemostatic. The pneumoperitoneum was then released and the remaining ports were removed. The skin incisions were then re-approximated using 4-0 monocryl suture in a subcuticular fashion. At the completion of the case, all instruments were removed from the vagina, and the hinkle catheter was removed. The sponge and needle counts were correct x 2. The patient was taken to the PACU in stable condition. Complications: none Post-operative Condition: stable Disposition: PACU Plan for aftercare: Plan for overnight stay then discharge home in the AM.
[2025-09-27] MEDS: ONDANSETRON 4 MG/2 ML INJ IV (16:02)
--- NOTE | 2025-09-27 16:33 | SUR.PHASEI ---
Dilaudid IV order by Maureen KENNEDY discontinued per protocol on transfer to the floor
--- NOTE | 2025-09-27 17:11 | PC.NURSE ---
1650 - Called provider Deidre, reported on low BP, provider advised if she is asymptomatic then she isn't worried. Provider Maureen Moore on unit at 1708, reported BP, she is at bedside administering IM Ephederine to bring pressure up to normal for patient. Patient also requested additional pain medication. Provider Deidre ordered additional pain medication.
--- NOTE | 2025-09-27 18:23 | PC.NURSE ---
1814 - Provider Maureen Moore HANDBAG DESIGNER at bedside, blood pressures improved. Requests that if MAP drops into low 50s, patient be given 500ml fluid bolus. If that does not improve MAP, she would like to be contacted. Patient in bed, spouse at bedside, call light within reach.
[2025-09-27] MEDS: KETOROLAC 30 MG/ML VIAL IV (21:21)
[2025-09-27] MEDS: ACETAMINOPHEN 325 MG TABLET 650 MG PO (23:56)
[2025-09-28] MEDS: KETOROLAC 30 MG/ML VIAL IV ×2 (03:08→09:32)
[2025-09-28 03:35] VITALS: BP 87/46; PULSE 64; RESP 18; TEMP 37.3; O2SAT 98
--- NOTE | 2025-09-28 03:40 | PC.NURSE ---
IV bolus 500 mL initiated due to low BP. pt denies feeling dizzy or lightheaded. does not appear to be pale.
[2025-09-28] MEDS: LACTATED RINGERS 1,000 ML 1000 ML IV (04:20)
[2025-09-28 04:50] VITALS: BP 89/51
[2025-09-28 05:07] VITALS: BP 90/52; PULSE 66; RESP 18
--- NOTE | 2025-09-28 05:12 | PC.NURSE ---
RN updated Teresa SPA DIRECTOR regarding low BPs. fluid bolus administered. SPA DIRECTOR okay with current BPs and MAPS. verbal order to stop fluids after bolus is done and monitor BPs.
[2025-09-28] MEDS: ACETAMINOPHEN 325 MG TABLET 650 MG PO (05:50)
[2025-09-28 05:53] VITALS: BP 86/53
--- NOTE | 2025-09-28 08:06 | PC.NURSE ---
0730: pt asleep. 0800: pt asleep w/ unlabored respirations.
[2025-09-28 09:26] VITALS: BP 94/55; PULSE 63; RESP 16; TEMP 37.4; O2SAT 96
--- NOTE | 2025-09-28 09:26 | P.DS_ITS ---
History of Present Illness History of Present Illness Date Patient Seen: 09/28/25 Time Patient Seen: 09:26 Chief complaint: postop Discharge Providers Provider Date of admission: 09/27/25 17:15 Discharge Date: 09/28/25 Primary care physician: JOANN Berman Discharge provider: Tana Jiang DO Summary Hospital Course Discharge Diagnosis: Abnormal uterine bleeding S/p robotic-assisted total laparoscopic hysterectomy with bilateral salpingectomy Hospital Course: 39yo F admitted on day of surgery and underwent the above procedures. Her EBL was 50cc, and her procedure was uncomplicated. By post-op day #1, she was ambulating, tolerating regular diet, voiding spontaneously, with minimal vaginal bleeding. Thus she was discharged to home on post-op day #1. Status at Discharge Cognitive/behavioral status at discharge: oriented Functional status at discharge: independent ambulation Overall status at discharge: patient is progressing back to baseline Time Spent with Patient Time spent: Less than 30 minutes Exam Vital Signs (past 8 hours): - 09/28/25 03:35 09/28/25 04:50 09/28/25 05:07 Temperature 99.1 F Pulse Rate 64 66 Respiratory Rate 18 18 Blood Pressure 87/46 L 89/51 L 90/52 L Pulse Oximetry 98 09/28/25 05:53 Temperature Pulse Rate Respiratory Rate Blood Pressure 86/53 L Pulse Oximetry Oxygen Delivery Method Room Air Narrative Exam Narrative: asymptomatic from overnight hypotension Const General: healthy appearing, comfortable and No acute distress Resp Effort & Inspection: normal respiratory effort and able to speak in complete sentences GI Other: soft, appropriately tender, nondistended Skin Other: laparoscopic incisions clean/dry/intact Neuro Cognition: normal cognition Speech: speech normal Extrem General: normal to inspection Psych Mood: congruent mood Affect: normal affect Objective Labs Labs: Laboratory Results - last 24 hr 09/27/25 13:11 POC Whole Bld Glucose 85 PFSH Medical History Vaginal delivery ADHD Surgical History Locke teeth removed (01/26/05) Social History Smoking Status: Never smoker alcohol intake: never (Not currently) substance use type: does not use Discharge Assessment & Plan Assessment and Plan Assessment: S/p robotic-assisted total laparoscopic hysterectomy with bilateral salpingectomy Plan of Treatment: Discharge to home with follow-up in clinic as scheduled. Discharge Plan Discharge Plan Patient Disposition: Home Provider Discharge Comment: Take ibuprofen 600mg every 6hrs (or meloxicam 15mg daily). Use tylenol 650mg every 6hrs as needed for pain. Use oxycodone 5-10mg every 4hrs as needed for severe pain. Avoid lifting greater than 20lbs for at least 4 weeks[address] anything in the vagina for at least 6 weeks. Discharge orders & Medications Prescriptions: Continued meloxicam 15 mg tablet 15 mg PO DAILY Qty: 90 0RF oxycodone 5 mg tablet 5 mg PO Q6H PRN (Reason: pain) Qty: 7 0RF dextroamphetamine-amphetamine [Adderall] 10 mg tablet 10 mg PO DAILY Mirena 21 mcg/24hr (up to 8 yrs) 52 mg intrauterine device intrauterine Follow up/Referrals: Tana Jiang, [Physician, LICENSING SERVICES CLERK] Diet/Activity/Treatments Diet: Diet as Tolerated Activity: Ambulate as tolerated. Skin/Wound/Dressing Care Skin care: You may shower normally. Report to your healthcare provider any signs of infection, such as:: chills, fever, increased pain, unusual drainage and unusual redness Dressing: The surgical glue will peel off after about 1 week. Visit Report/Discharge Packet Instructions: DI for Hysterectomy, DI for Laparoscopy, DI for Prescription Opioid Use Stand Alone Forms: Patient Portal/API, Stroke Signs & Symptoms Discharge Data Primary Care Provider: Lyn Barrios Attending Provider: Tana Jiang Admit Date/Time: 09/27/25 17:15 PROFEE Charge Codes Discharge inpatient/observation: [id number]
[2025-09-28 09:48] VITALS: BP 94/55; PULSE 63; RESP 18; TEMP 37.4; O2SAT 96
--- NOTE | 2025-09-28 09:51 | PC.NURSE ---
0900; Dr. Jiang at bedside. Discharge orders received. 0940: 4 lap sites observed. No redness or drainage noted
--- NOTE | 2025-09-28 10:06 | PC.NURSE ---
pt discharged in stable condition via W/C and accompanied by her . D/C instructions given to pt w/ her understanding
== END 2025-09-28 10:06 | disposition home or self-care (01) ==
LOC: LABOR 09-28 09:36 → OR 09-28 12:28
PROVIDERS: PCP Registered Nurse; Referring Provider Student in an Organized Health Care Education/Training Program; Visit Provider Student in an Organized Health Care Education/Training Program
PROC: 0UT94ZZ Resection of Uterus, Percutaneous Endoscopic Approach (ICD-10-PCS; CPT 58571; principal; 2025-09-27 13:15)
DX: N93.9 Abnormal uterine and vaginal bleeding, unspecified (principal); N72 Inflammatory disease of cervix uteri; D25.1 Intramural leiomyoma of uterus; N83.8 Other noninflammatory disorders of ovary, fallopian tube and broad ligament
CPT/HCPCS: 58571; 82962; G0378; S2900; G0379; J0131; J0689; J1100; J1171; J1885; J2250; J2405; J2704; J3010; J7120